=== PATIENT | male | born 1975 | race Caucasian/White ===

== ENCOUNTER 2022-04-26 20:14 | Emergency (ER) | payer BC ==
[2022-04-26 20:22] VITALS: TEMP 98.5; BMI 31.2
[2022-04-26 20:56] LABS: HEMATOCRIT 41.5 % (35.4-49); HEMOGLOBIN 14.7 G/dL (11.7-16.9); MCH 29.8 pg (25.7-33.7); MCHC 35.3 g/dl (32.0-35.9); MEAN CELL VOLUME 84.4 fl (80-96); PLATELET COUNT 188.3 10^3/uL (134-434); RBC 4.92 10^6/uL (4.00-5.60)
[2022-04-26 21:11] LABS: ALBUMIN 4.5 g/dl (3.4-5.0); BILIRUBIN,TOTAL 0.5 mg/dl (0.2-1); CREATININE 1.1 mg/dl (0.55-1.3); TOT PROT 7.6 g/dl (6.4-8.2)
[2022-04-26] MEDS ORDERED: KETOROLAC TROMETHAMINE 60 MG/2 ML VIAL IM ONE (21:31)
[2022-04-26] MEDS ORDERED: KETOROLAC TROMETHAMINE 30 MG/1 ML VIAL ONE (21:33)
[2022-04-26] MEDS ORDERED: KETOROLAC TROMETHAMINE 30 MG/1 ML VIAL IVPUSH ONE (21:35)
[2022-04-26 23:53] VITALS: BP 137/94; PULSE 84; RESP 17
== END 2022-04-26 23:55 | disposition home or self-care (01) ==
LOC: FER 20:14
PROC: 3E0333Z Introduction of Anti-inflammatory into Peripheral Vein, Percutaneous Approach (ICD-10-PCS; principal; 2022-04-26)
DX: M25.512 Pain in left shoulder (principal)
CPT/HCPCS: 0241U-QW; 36415; 80053; 82550; 82553; 83735; 84484; 85027; 85379; 93005; 99284-25